=== PATIENT | male | born 1990 | race African-American/Black ===

== ENCOUNTER 2024-02-25 13:51 | Inpatient (IN) | payer OTHER ==
[2024-02-25] MEDS ORDERED: BISMUTH SUBSALICYLATE 262 MG/15 ML BTL PO PRN (15:06)
[2024-02-25] MEDS ORDERED: NICOTINE POLACRILEX 2 MG LOZENGE BC PRN (15:06)
[2024-02-25] MEDS ORDERED: ACETAMINOPHEN 325 MG TABLET (FP) PO PRN (15:06)
[2024-02-25] MEDS ORDERED: MAGNESIUM HYDROX 2400MG/30ML ORAL SUSPENSION 30 ML CUP PO PRN (15:06)
[2024-02-25] MEDS ORDERED: P-EPHED 60MG/TRIPROLIDI 2.5MG TABLET PO PRN (15:06)
[2024-02-25] MEDS ORDERED: BENZOCAINE/MENTHOL (CHLORASEPTIC ) LOZENGE MM PRN (15:06)
[2024-02-25] MEDS ORDERED: BENZONATATE 200 MG CAPSULE PO PRN (15:06)
[2024-02-25] MEDS ORDERED: ONDANSETRON *ODT* 4 MG TABLET SL PRN (15:06)
[2024-02-25] MEDS ORDERED: POLYETHYLENE GLYCOL (HEALTHYLAX) 3350 17 GM PACKET PO PRN (15:06)
[2024-02-25] MEDS ORDERED: NALOXONE HCL 0.4 MG/ML VIAL IM PRN (15:06)
[2024-02-25] MEDS ORDERED: NALOXONE HCL (KLOXXADO) 8 MG SPRAY NS PRN (15:06)
[2024-02-25] MEDS ORDERED: IBUPROFEN 400 MG TABLET (FP) PO PRN (15:06)
[2024-02-25] MEDS ORDERED: NICOTINE POLACRILEX 2 MG GUM BUC PRN (15:06)
[2024-02-25] MEDS ORDERED: MAG HYDROX/AL HYDROX/SIMETH 30 ML UNIT-DOSE CUP PO PRN (15:06)
[2024-02-25] MEDS ORDERED: guaiFENesin 600 MG TABLET.ER (FP) PO PRN (15:06)
[2024-02-25] MEDS: hydrOXYzine PAMOATE 25 MG CAPSULE (FP) PO PRN (17:25)
[2024-02-25] MEDS: THIAMINE 100 MG TABLET PO SCH (22:27)
[2024-02-25] MEDS: MELATONIN 5 MG TABLETS PO SCH (22:28)
[2024-02-25] MEDS: DICYCLOMINE HCL 10 MG CAPSULE PO PRN (22:29)
[2024-02-26] MEDS: PRENATAL VITAMINS W/ FOLIC ACID TABLET (FP) PO SCH (10:03)
[2024-02-26] MEDS: methaDONE HCL 10 MG TABLET (FOR DETOX USE ONLY) PO ONE (10:35)
[2024-02-26] MEDS: LOPERAMIDE HCL 2 MG CAPSULE PO PRN (10:37)
[2024-02-26] MEDS: METHOCARBAMOL 500 MG TABLET PO PRN (10:37)
[2024-02-26 11:47] LABS: HEMATOCRIT 33.8 % (35.4-49); HEMOGLOBIN 11.7 GM/dL (11.7-16.9); MCH 29.8 pg (25.7-33.7); MCHC 34.5 g/dl (32.0-35.9); MEAN CELL VOLUME 86.4 fl (80-96); PLATELET COUNT 204 10^3/uL (134-434); RBC 3.91 M/mm3 (4.00-5.60); RDW 14.6 % (11.9-15.9); WHITE BLOOD COUNT 5.7 K/mm3 (4.0-10.0)
[2024-02-26 11:50] LABS: POTASSIUM 4.1 mmol/L (3.5-5.1)
[2024-02-26 11:54] LABS: ALBUMIN 3.6 g/dl (3.4-5.0); BLOOD UREA NITROGEN 8.3 mg/dL (7-18); CALCIUM 8.8 mg/dL (8.5-10.1)
[2024-02-26 11:56] LABS: CREATININE 0.7 mg/dL (0.55-1.3)
[2024-02-26 11:58] LABS: BILIRUBIN,TOTAL 0.6 mg/dL (0.2-1); TOT PROT 6.2 g/dl (6.4-8.2)
[2024-02-26] MEDS: diazePAM 5 MG TABLET PO PRN (20:11)
[2024-02-26] MEDS: SUVOREXANT 10 MG TABLET PO SCH (21:52)
[2024-02-27] MEDS: IBUPROFEN 600 MG TABLET (FP) PO PRN (11:34)
[2024-02-28] MEDS: methaDONE HCL 10 MG TABLET (FOR DETOX USE ONLY) PO ONE (09:57)
[2024-02-29 09:13] VITALS: BP 120/74; PULSE 83; RESP 18; TEMP 97.3
== END 2024-02-29 09:35 | disposition home or self-care (01) | DRG 773 ==
LOC: YASAS 13:51 → Y6N 15:31
PROVIDERS: ADMIT Allergy & Immunology; ATTEND Surgery
PROC: HZ2ZZZZ Detoxification Services for Substance Abuse Treatment (ICD-10-PCS; principal; 2024-02-25)
DX: F11.23 Opioid dependence with withdrawal (principal); F13.20 Sedative, hypnotic or anxiolytic dependence, uncomplicated; F17.210 Nicotine dependence, cigarettes, uncomplicated; F41.9 Anxiety disorder, unspecified; F32.A Depression, unspecified; G47.00 Insomnia, unspecified
CPT/HCPCS: 36415; 80053; 80305; 80307; 85027; 86780; 93005; 93010